=== PATIENT | male | born 1940 | race Caucasian/White ===

== ENCOUNTER 2024-02-01 11:18 | Day surgery (SDC) | payer MEDICARE ==
[2024-01-30 14:56] VITALS: BMI 27.0
[2024-02-01 12:06] VITALS: RESP 16; TEMP 97.8
[2024-02-01] MEDS: IV FLUID CONTINUATION 1,000 ML IV ONE (12:10)
[2024-02-01] MEDS: LACTATED RINGERS 1,000 ML IV SCH (12:10)
[2024-02-01] MEDS: LIDOCAINE 1% (10MG/ML) FOR IV START INTRADERMA PRN (12:10)
[2024-02-01] MEDS ORDERED: PROPOFOL 10 MG/ML 20 ML VIAL IV ONE (12:49)
[2024-02-01] MEDS ORDERED: LIDOCAINE 1% INJ 10MG/ML (20 ML MDV) ONE (12:49)
[2024-02-01] MEDS ORDERED: GLYCOPYRROLATE 0.2 MG/ML 2 ML VIAL ONE (12:49)
[2024-02-01 13:25] VITALS: BP 105/67; PULSE 69
--- NOTE | 2024-02-01 16:28 | P.OP ---
Date of Procedure: 02/01/24 Preoperative Diagnosis: Positive Cologuard Postoperative Diagnosis: Diverticulosis Procedure(s) Performed: Colonoscopy Anesthesia: other (Sedation) Surgeon: Jiame Disla Pathology: none sent Condition: stable Disposition: PACU Description of Procedure: After informed consent was obtained, the patient was placed in the left lateral position and the above medications were titrated with adequate sedation. Monitoring was provided throughout the entire procedure. Digital rectal exam was performed revealing normal sphincter tone and no external hemorrhoids. The colonoscope was inserted into rectum and advanced under direct visualization, without difficulty, to the cecum, where the cecal strap, appendiceal orifice, and the ileocecal valve were identified. The quality of the preparation was good. The colonoscope was then withdrawn while carefully examining the mucosa. The colonic mucosa appeared normal with normal vascularity and haustral markings. No masses, polyps, or AVM/s were seen. There was diverticulosis in the left colon. On retroflexed view in the rectum, there are small internal hemo rrhoids. The endoscope was removed and the procedure terminated. The patient tolerated the procedure well without complications.
== END 2024-02-01 13:57 | disposition home or self-care (01) ==
LOC: ORWHC2ENDO 11:18
PROVIDERS: ATTEND Surgery
DX: K57.30 Diverticulosis of large intestine without perforation or abscess without bleeding (principal); K64.8 Other hemorrhoids; K21.9 Gastro-esophageal reflux disease without esophagitis; I10 Essential (primary) hypertension; E78.5 Hyperlipidemia, unspecified; Z79.899 Other long term (current) drug therapy
CPT/HCPCS: 45378; J2003; J2704; J1596